=== PATIENT | female | born 1955 | race Caucasian/White ===

== ENCOUNTER 2023-12-25 10:44 | Outpatient (RCR) | payer OTHER, SELFPAY ==
[2023-12-11 10:47] VITALS: BP 148/93
[2023-12-11] MEDS: VENOFER 110 MG IV (10:57)
[2023-12-11 12:02] VITALS: BP 136/97
[2023-12-13 10:53] VITALS: BP 148/68
[2023-12-13] MEDS: VENOFER 110 MG IV (11:05)
[2023-12-13 12:12] VITALS: BP 136/73
[2023-12-18 11:00] VITALS: BP 138/75
[2023-12-18] MEDS: VENOFER 110 MG IV (11:07)
[2023-12-18 12:10] VITALS: BP 153/87
[2023-12-20 11:45] VITALS: BP 143/82
[2023-12-20] MEDS: VENOFER 110 MG IV (11:55)
[2023-12-20 13:20] VITALS: BP 141/79
[2023-12-25 11:04] VITALS: BP 131/75
[2023-12-25] MEDS: VENOFER 110 MG IV (11:20)
[2023-12-25 12:40] VITALS: BP 138/92
== END 2023-12-31 23:59 | disposition home or self-care (01) ==
LOC: OID 10:44
PROVIDERS: ATTENDING PHYSICIAN Student in an Organized Health Care Education/Training Program
DX: D50.0 Iron deficiency anemia secondary to blood loss (chronic) (principal); D50.9 Iron deficiency anemia, unspecified (principal); R79.0 Abnormal level of blood mineral (principal); Q27.33 Arteriovenous malformation of digestive system vessel; T45.4X5A Adverse effect of iron and its compounds, initial encounter; K55.20 Angiodysplasia of colon without hemorrhage; Z86.2 Personal history of diseases of the blood and blood-forming organs and certain disorders involving the immune mechanism; Y93.89 Activity, other specified
CPT/HCPCS: 96365; J1756

== ENCOUNTER 2024-07-13 10:46 | Emergency (ER) | payer OTHER, SELFPAY ==
[2024-07-13 10:49] VITALS: BP 181/89
[2024-07-13 11:00] VITALS: BP 164/59
--- NOTE | 2024-07-13 11:09 | ED.GENMED ---
History of Present Illness
General
Chief Complaint: Flank Pain
Source: patient
Exam Limitations: none
Time Seen by Provider: 07/13/24 10:58
History of Present Illness
History of Present Illness:
68yoF with a history of lung cancer s/p surgery 2 years ago currently in remission, hypothyroidism, anemia, and depression presenting for evaluation of flank pain. She woke up this morning feeling normal. She urinated and had a bowel movement.
Shortly afterwards around 8am this morning, she had an abrupt onset of severe pain in her R flank. Pain radiates to the RLQ. She reports nausea and vomited once prior to arrival. She is also having hot and cold flashes. She has been unable to
get in a comfortable position. Nothing seems to make the pain better or worse. No prior history of kidney stones.
Phy Exam
Physical Exam
Physical Exam:
Patient writhing around on stretcher due to pain
General Physical Exam
General Presentation: moderate distress
General Skin: warm and dry
General Habitus: normal
General Mental: alert
ENT Exam
ENT Exam: normocephalic
Pulmonary Exam
Pulmonary Exam: no respiratory distress
Gastrointestinal Exam
Gastrointestinal Exam: soft, non distended and other (No CVA tenderness or abdominal tenderness)
Neurological Exam
Neurological Exam: alert
[place] Coma Scale
Eye Opening: Spontaneous
Verbal Response: Oriented
Motor Response: Obeys Commands
GCS Total Score: 15
Skin Exam
Skin Exam: warm/dry
Psychiatric Exam
Psychiatric Exam: anxious
Course
Orders/Labs/Results
Orders:
Orders
07/13/24 11:08
CT Abd/pel Without Iv Or Oral Urgent
Comment:
Reason For Exam: R flank pain
0.9% Sodium Chloride 1000 ml [Nss] 1,000 ml IV BOLUS
HYDROmorphone [Dilaudid] 1 mg IV NOW STA
Ketorolac [Toradol] 15 mg IV NOW STA
Ondansetron Injectable [Zofran] 4 mg IV NOW STA
07/13/24 11:23
Complete Blood Count/With Diff Urgent
Comprehensive Metabolic Panel Urgent
07/13/24 13:45
Urinalysis Reflex To Culture Urgent
Date Specimen was Collected: 07/13/24
Time Specimen was Collected: 13:44
Urine Microscopic Reflex Cult Urgent
Abnormal Lab Results
07/13/24 07/13/24
11:23 13:45
RDW 19.9 H %
(11.5-14.5)
Abs Immat Gran (auto) 0.1 H 10^3/uL
(0-0.05)
Absolute Neuts (auto) 8.3 H 10^3/uL
(1.4-6.5)
Immature Gran % 1.0 H %
(0-0.5)
Neutrophils % 78.6 H %
(42.2-75.2)
Lymphocytes % 13.3 L %
(20.5-51.1)
BUN 25 H mg/dl
(7-17)
Creatinine 1.2 H mg/dL
(0.6-1.0)
Glucose 151 H mg/dl
(70-99)
Urine Ketones 1+ A
(Negative)
Ur Occult Blood Reflex 4+ A
(Negative)
Urine RBC 21-25 A /HPF
(0-2)
Urine Bacteria (Reflex) Few A
(Negative)
07/13/24 11:23
07/13/24 11:23
Vital Signs
Initial and Last Documented VS:
Initial Vital Signs
Temp Pulse Resp BP Pulse Ox
98.3 F 59 16 181/89 98
07/13/24 10:49 07/13/24 10:49 07/13/24 10:49 07/13/24 10:49 07/13/24 10:49
Last Documented Vital Signs
Temp Pulse Resp BP Pulse Ox
98.3 F 51 16 113/60 100
07/13/24 10:49 07/13/24 14:00 07/13/24 10:49 07/13/24 13:43 07/13/24 11:04
MDM/Problems Addressed
Differential Diagnosis Includes:
68yoF here with severe R flank pain. Started abruptly this morning. Radiates to the RLQ. Associated with n/v. Patient is hypertensive with otherwise normal vital signs. She is writhing around in pain on exam. No reproducible abdominal or CVA
tenderness. Differential diagnosis includes but is not limited to: Kidney stone, pyelonephritis, doubt but consider AAA
Initial ED plan: Check CBC, CMP, UA, and CT abdomen without contrast. IV Dilaudid, Toradol, Zofran, and fluid bolus for symptoms.
*Critical Care Note
Total Time (30-74mins, 75-104mins- exclusive of procedures): Not Applicable
Update Note
Update Note:
Labs reveal a mildly elevated creatinine at 1.2. No prior labs to compare to. CT shows mild dilatation of the right renal collecting system with mild perinephric stranding. No findings to confirm calculus along the right ureter. No signs of
infection urinalysis but hematuria noted. Suspect passed kidney stone. Patient reports marked improvement in symptoms after medications. No indication for hospitalization. Supportive care discussed. Advised to follow-up with urology and PCP.
ED return precautions discussed. Patient in agreement with plan and was discharged in stable condition.
ED Attending Note
-
Portions of this chart may have been created with voice recognition software.� Occasional wrong word or��sound alike� substitutions may have occurred due to the inherent limitations of voice recognition software.
Discharge Plan
Departure
Patient Disposition: Home (Routine Discharge)
Date of Disposition: 07/13/24
Time of Disposition: 14:52
Patient with high blood pressure during this ER visit?: Yes
Discharge Problem:
Right flank pain
Instructions: Flank Pain (DC)
Prescriptions:
No Action
imiquimod 5 % Cream In Packet
1 applic TOPICAL ONCE PRN (Reason: pre cancer)
venlafaxine 50 mg Tablet
50 mg PO DAILY
levothyroxine [Synthroid] 112 mcg Tablet
112 mcg PO DAILY
bupropion HCl [Wellbutrin XL] 300 mg Tablet Extended Release 24 Hr
300 mg PO DAILY
Slow Fe 137 mg (45 mg iron) Tablet Extended Release
25 mg PO .EVERY OTHER DAY
Patient Comments:
ON HOLD
vitamin S21-kyaku acid 1-0.8 mg Tablet
1 tab PO DAILY
Vitamin D3
1 tab PO DAILY
Patient Comments:
CLIENT UNSURE OF DOSE
Referrals:
Broderick Lockhart MD [Active] -
Susan Barcenas MD [Family Provider] -
Activity Restrictions/Additional Instructions:
Drink plenty of fluids and hydrate. Take Tylenol and ibuprofen as needed for pain.
Please follow-up with your family doctor and urology. Return to the ER with any worsening symptoms including fevers, chills, severe pain.
Interventions
Interventions:
*Risk Screen - Suicide Last Done: 07/13/24 10:49
*General Assessment Last Done: 07/13/24 12:01
*Neglect/Abuse Screening Last Done: 07/13/24 10:49
*ED- Fall Risk Assessment Last Done: 07/13/24 12:01
*ED COVID-19 Vaccine History Last Done: 07/13/24 12:01
*Nursing Disposition Last Done: 07/13/24 15:26
[facility] Assessment Last Done: 07/13/24 12:01
ED-Female Genitourinary Assessment Last Done: 07/13/24 12:01
Discharge Date and Time
Discharge Date/Time: 07/13/24 15:27
Print Language: FRENCH
[2024-07-13] MEDS: DILAUDID 1 MG IV (11:17)
[2024-07-13] MEDS: TORADOL 15 MG IV (11:17)
[2024-07-13] MEDS: ZOFRAN 4 MG IV (11:17)
[2024-07-13] MEDS: NSS 1000 IV (11:18)
[2024-07-13 11:40] LABS: % Basophils 0.8 % (0-2); % Eosinophils 1.9 % (0-6); % Lymphocytes 13.3 % (20.5-51.1); % Monocytes 4.4 % (1.7-9.3); % Neutrophils 78.6 % (42.2-75.2); Absolute Basophils 0.1 10^3/uL (0-0.2); Absolute Eosinophils 0.2 10^3/uL (0-0.7); Absolute Immature Granulocytes 0.1 10^3/uL (0-0.05); Absolute Lymphocytes 1.4 10^3/uL (1.2-3.4); Absolute Monocytes 0.5 10^3/uL (0.1-0.6); Absolute Neutrophils 8.3 10^3/uL (1.4-6.5); Hemoglobin 13.2 g/dL (12.0-16.0); Mean Corpuscular Hgb 30.3 pg (27.0-31.0); Mean Corpuscular Volume 91.7 fL (81.0-99.0); Mean Platelet Volume 8.4 fL (7.4-10.4); Nucleated Red Blood Cells % 0 %; Platelet Count 320 10^3/uL (130-400); Red Blood Cell Count 4.36 10^6/uL (4.20-5.40); Red Cell Dist. Width 19.9 % (11.5-14.5); White Blood Cell Count 10.6 10^3/uL (4.8-10.8)
[2024-07-13 11:46] LABS: ALT (SGPT) 22 U/L (0-35); AST (SGOT) 23 U/L (14-36); Albumin 4.5 g/dl (3.5-5.0); Alkaline Phosphatase 107 U/L (38-126); Blood Urea Nitrogen 25 mg/dl (7-17); Calcium 9.8 mg/dl (8.4-10.2); Carbon Dioxide 27 mmol/L (22-30); Chloride 105 mmol/L (98-107); Glucose 151 mg/dl (70-99); Potassium 4.6 mmol/L (3.5-5.1); Sodium 142 mmol/L (135-145); Total Bilirubin 0.4 mg/dl (0.2-1.3); Total Protein 6.9 g/dl (6.3-8.2); eGFR 49.31
[2024-07-13 12:00] VITALS: BMI 28.9
[2024-07-13 13:43] VITALS: BP 113/60
[2024-07-13 14:06] LABS: Urine Albumin Negative (Neg - Trace); Urine Bilirubin Negative (Negative); Urine Character Clear (Clear); Urine Color Yellow; Urine Glucose Negative (Negative); Urine Ketone 1+ (Negative); Urine Leukocyte Negative (Negative); Urine Nitrite Negative (Negative); Urine Occult Blood 4+ (Negative); Urine Specific Gravity 1.015 (<1.030); Urine Urobilinogen Negative (Neg - 1+); Urine pH 6.5 (5.0-9.0)
[2024-07-13 14:38] LABS: Urine Bacteria Few (Negative); Urine Red Blood Cell 21-25 /HPF (0-2)
== END 2024-07-13 15:27 | disposition home or self-care (01) ==
LOC: EMR 10:46
PROVIDERS: Physician Assistant; EMERGENCY PHYSICIAN Emergency Medicine; FAMILY PHYSICIAN Student in an Organized Health Care Education/Training Program
DX: R10.9 Unspecified abdominal pain (principal); R11.2 Nausea with vomiting, unspecified; E03.9 Hypothyroidism, unspecified; Z85.118 Personal history of other malignant neoplasm of bronchus and lung
CPT/HCPCS: 99284; 96374; 96375; 96361; 74176; 80053; 81003; 81015; 85025

== ENCOUNTER 2024-08-11 06:18 | Day surgery (SDC) | payer OTHER, SELFPAY ==
[2024-08-11 10:18] VITALS: BMI 28.3
[2024-08-11 10:19] VITALS: BMI 28.3
[2024-08-11 10:21] VITALS: BP 151/90
[2024-08-11 11:17] VITALS: BP 141/74
[2024-08-11 11:30] VITALS: BP 127/69
== END 2024-08-11 11:50 | disposition home or self-care (01) ==
LOC: GI 06:18
PROVIDERS: ATTENDING PHYSICIAN Internal Medicine Gastroenterology
DX: D50.9 Iron deficiency anemia, unspecified (principal); K64.8 Other hemorrhoids; K55.20 Angiodysplasia of colon without hemorrhage; K31.811 Angiodysplasia of stomach and duodenum with bleeding; K22.89 Other specified disease of esophagus
CPT/HCPCS: 45382; 43239; 88305

== ENCOUNTER → 2025-01-21 11:30 | Outpatient (REF) | payer OTHER, SELFPAY | LOC: HWRAD 11:30 | PROVIDERS: ATTENDING PHYSICIAN Internal Medicine Cardiovascular Disease; FAMILY PHYSICIAN Student in an Organized Health Care Education/Training Program | DX: R61 Generalized hyperhidrosis (principal) | CPT/HCPCS: 75571 ==